=== PATIENT | male | born 1990 | race Asian ===

== ENCOUNTER 2018-07-30 20:05 | Emergency (ER) | payer OTHER ==
[~2018-07-30] VITALS: Ht 175.3 cm; Wt 72.6 kg
[2018-07-30 22:31] VITALS: BP 133/77; TEMP 98.2
== END 2018-07-30 22:38 | disposition short-term general hospital (02) ==
LOC: ED 20:05
PROC: 0KQ10ZZ Repair Facial Muscle, Open Approach (ICD-10-PCS; principal; 2018-07-30)
PROC: 0HQ3XZZ Repair Left Ear Skin, External Approach (ICD-10-PCS; 2018-07-30)
DX: S02.82XA Fracture of other specified skull and facial bones, left side, initial encounter for closed fracture (principal); S01.81XA Laceration without foreign body of other part of head, initial encounter; S09.8XXA Other specified injuries of head, initial encounter; S01.312A Laceration without foreign body of left ear, initial encounter; Y00.XXXA Assault by blunt object, initial encounter; Y92.512 Supermarket, store or market as the place of occurrence of the external cause
CPT/HCPCS: 36415; 99284

== ENCOUNTER 2018-07-30 22:38 | Outpatient (CLI) | payer OTHER | END 2018-07-31 00:10 | disposition short-term general hospital (02) | LOC: AMB 22:38 | DX: S02.82XA Fracture of other specified skull and facial bones, left side, initial encounter for closed fracture (principal); S01.81XA Laceration without foreign body of other part of head, initial encounter; S09.8XXA Other specified injuries of head, initial encounter; S01.312A Laceration without foreign body of left ear, initial encounter; Y00.XXXA Assault by blunt object, initial encounter; Y92.512 Supermarket, store or market as the place of occurrence of the external cause | CPT/HCPCS: A0425; A0427 ==

== ENCOUNTER 2022-09-17 10:25 | Emergency (ER) | payer OTHER ==
[~2022-09-17] VITALS: Ht 177.8 cm; Wt 72.6 kg
[2022-09-17 10:30] VITALS: BP 160/95; TEMP 98.5
== END 2022-09-17 12:15 | disposition home or self-care (01) ==
LOC: ED 10:25
PROC: 2W3QX1Z Immobilization of Right Lower Leg using Splint (ICD-10-PCS; principal; 2022-09-17)
DX: S82.64XA Nondisplaced fracture of lateral malleolus of right fibula, initial encounter for closed fracture (principal); W00.0XXA Fall on same level due to ice and snow, initial encounter; Y92.89 Other specified places as the place of occurrence of the external cause
CPT/HCPCS: 96372; 99283; J1885